=== PATIENT | female | born 2000 | race African-American/Black ===

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

== ENCOUNTER 2019-03-15 23:41 | Emergency (ER) | payer MEDICAID ==
[2019-03-15 23:47] VITALS: BP 127/70
--- NOTE | 2019-03-16 00:01 | EDM.PDOC ---
ED HPI GENERAL MEDICAL PROBLEM - General Chief Complaint: Lower Extremity Injury/Pain Stated Complaint: left ankle pain Time Seen by Provider: 03/15/19 23:50 Source of Information: Reports: Patient History Limitations: Reports: No Limitations - History of Present Illness INITIAL COMMENTS - FREE TEXT/NARRATIVE: Patient states today approximately at 5 PM states while dancing around she turned her left ankle inward she states she was able to walk afterwards but has been walking with a little bit of limp the rest of the day she says the pain is actually gone down through the night rates her pain now is about a 6 out of 10 she says she can walk is just little sore she denies increase in swelling or increasing pain no numbness, tingling states that the only remedy she has tried was a hot bath no [id number] NSAIDs or ice she denies any other complaints at this time Onset: Today Duration: Hour(s): Quality: Reports: Throbbing Left Ankle Pain Score (Numeric/FACES): 6 - Related Data Allergies Allergy/AdvReac Type Severity Reaction Status Date / Time No Known Allergies Allergy Verified 03/15/19 23:42 Home Meds: Home Meds FLUoxetine HCl [Fluoxetine HCl] 1 tab PO DAILY 03/15/19 [History] busPIRone HCl [Buspirone HCl] 1 tab PO DAILY 03/15/19 [History] Past Medical History - Past Health History Medical/Surgical History: Denies Medical/Surgical History Psychiatric History: Reports: Anxiety, Depression, PTSD, Other (See Below) Other Psychiatric History: cutter Social & Family History - Tobacco Use Smoking Status *Q: Never Smoker Review of Systems - Review of Systems Review Of Systems: See Below Constitutional: Reports: No Symptoms Musculoskeletal: Reports: Joint Swelling. Denies: Leg Pain, Foot Pain, Joint Pain Skin: Reports: No Symptoms Neurological: Reports: No Symptoms. Denies: Numbness, Tingling ED EXAM, GENERAL - Physical Exam Exam: See Below Exam Limited By: No Limitations General Appearance: Alert, WD/WN, No Apparent Distress (Patient is actively playing on phone no acute distress) Extremities: Normal Inspection, Normal Range of Motion, No Pedal Edema, Normal Capillary Refill (Exams left foot and left ankle neurovascularly intact normal dorsalis pedis posterior tibialis normal soft touch sensation with cap Refill no tenderness to palpation on the medial or lateral malleolus or over the navicular tenderness to palpation over the proximal tibia fibula area she has full range of motion with the ankle with eversion and inversion she has no tenderness to palpation over the fifth metatarsal mild edema is noted over the lateral malleolus area), Other. No: Non-Tender, Joint Swelling Neurological: Alert, CN II-XII Intact, Normal Cognition, Normal Gait, No Motor/ Sensory Deficits Skin Exam: Warm, Intact, Normal Color, No Rash Course - Vital Signs Last Recorded V/S: Last Vital Signs Temp 35.6 C 03/15/19 23:44 Pulse 87 03/15/19 23:44 Resp 16 03/15/19 23:44 BP 127/70 03/15/19 23:44 Pulse Ox 96 03/15/19 23:44 - Re-Assessments/Exams Free Text/Narrative Re-Assessment/Exam: 03/16/19 00:01 kaw ankle rules were applied for the patient Bone tenderness at the posterior edge or tip of the lateral malleolus Bone tenderness at the posterior edge or tip of the medial malleolus OR. An inability to bear weight both immediately and in the emergency department for four steps. Bone tenderness at the posterior edge or tip of the lateral malleolus (A) Bone tenderness at the posterior edge or tip of the medial malleolus (B) OR. An inability to bear weight both immediately and in the emergency department for four steps. Departure - Departure Time of Disposition: 00:05 Disposition: Home, Self-Care 01 Condition: Good Clinical Impression: Left ankle sprain - Discharge Information Instructions: Ankle Sprain - Problem List & Annotations (1) Left ankle sprain SNOMED Code(s): 42238045, [id number] Code(s): S93.402A - SPRAIN OF UNSPECIFIED LIGAMENT OF LEFT ANKLE, INIT ENCNTR Status: Acute (2) Left ankle sprain SNOMED Code(s): 96950147, [id number] Code(s): S93.402A - SPRAIN OF UNSPECIFIED LIGAMENT OF LEFT ANKLE, INIT ENCNTR Status: Acute - Assessment/Plan Plan: Patient was applied by myself to left ankle patient was rechecked neurovascularly intact patient states she is okay with treatment conservatively and will follow up PCP or return to the ER if anything changes Tylenol 500 mg by mouth every 4-6 hours Motrin/ibuprofen 800 mg by mouth every 8 hours take both medications with food and apply ice to the area 1 hour on 1 hour off for the next 12-24 hours and elevate the ankle as much as possible remove the Yves wrap if any numbness tingling or discoloration coldness to the foot return to the emergency room if any of the above problems start or anything changes follow up with primary care provider the next 24 hours and have the ankle x-rayed if pain increases or cannot walk or have increased pain with walking
== END 2019-03-16 00:15 | disposition home or self-care (01) ==
LOC: VM.ED 23:41
DX: S93.402A Sprain of unspecified ligament of left ankle, initial encounter (principal); F41.9 Anxiety disorder, unspecified; F32.9 Major depressive disorder, single episode, unspecified; Z79.899 Other long term (current) drug therapy; X50.9XXA Other and unspecified overexertion or strenuous movements or postures, initial encounter; Y93.41 Activity, dancing
CPT/HCPCS: 99282

== ENCOUNTER 2020-10-18 09:12 | Emergency (ER) | payer MEDICAID ==
[2020-10-18 09:21] VITALS: BP 121/72; PULSE 109
[2020-10-18 09:43] LABS: BARBITURATE SCREEN,URINE NEGATIVE (NEGATIVE); BENZODIAZEPINES SCREEN,URINE NEGATIVE (NEGATIVE); EDDP,URINE SCREEN NEGATIVE (NEGATIVE); METHAMPHETAMINE SCREEN, URINE NEGATIVE (NEGATIVE); TCA SCREEN,URINE NEGATIVE (NEGATIVE); THC SCREEN,URINE 50 NG/ML NEGATIVE (NEGATIVE)
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
[2020-10-18 10:32] LABS: CHLORIDE,CL 104 mmol/L (98-107); SODIUM,NA 139 mmol/L (136-145)
[2020-10-18 10:33] LABS: ACETAMINOPHEN 0 ug/ml (10-30); ANION GAP 12.4 mmol/L (10-20)
[2020-10-18] MEDS: Take Home: Sulfamethoxazole/Trimethoprim 800-160 MG Tab, 2 Tab Pack PO ONE (14:02)
[2020-10-18] MEDS ORDERED: Piperacillin/Tazobactam 4.5 GM in Sodium Chloride 0.9% 100 ML IV ONE (14:40)
== END 2020-10-18 13:08 ==
LOC: VM.ED 09:12
DX: F32.9 Major depressive disorder, single episode, unspecified (principal); F10.10 Alcohol abuse, uncomplicated; Y90.6 Blood alcohol level of 120-199 mg/100 ml; N39.0 Urinary tract infection, site not specified; F41.9 Anxiety disorder, unspecified; Z79.899 Other long term (current) drug therapy; Z20.828 Contact with and (suspected) exposure to other viral communicable diseases
CPT/HCPCS: 36415; 80053; 80305-QW; 80307; 81001; 81025; 83735; 84443; 85025; 85610; 85730; 87086; 99284; 99285-25; A9270-GY; U0002

== ENCOUNTER 2021-02-16 01:43 | Emergency (ER) | payer MEDICAID ==
--- NOTE | 2021-02-16 01:55 | EDM.PDOC ---
ED HPI GENERAL MEDICAL PROBLEM - General Stated Complaint: arm pain and numbness Time Seen by Provider: 02/16/21 01:54 Source of Information: Reports: Patient History Limitations: Reports: No Limitations - History of Present Illness INITIAL COMMENTS - FREE TEXT/NARRATIVE: Patient comes emergency department today with complaints of an acute onset of left lateral neck pain. This patient about a half an hour ago woke up for the first time today at 1:30 in the morning and started the stretching suddenly felt some popping and severe pain in the left lateral aspect of the posterior neck that radiated down the cephalad aspect of the shoulder. She has had no recent falls trauma or injury to her neck. She has no history of neck problems neck pain or neck surgery. She complains of pain that starts at the left posterior base of her neck radiates along the aspect of the shoulder and down about long term of the left humerus. She does complain of some paresthesia but no change in function. No back pain. She has not tried anything for pain prior to arrival. NO COVID exposure no COVID symptoms. Neck Pain Score (Numeric/FACES): 3 - Related Data Allergies Allergy/AdvReac Type Severity Reaction Status Date / Time No Known Allergies Allergy Verified 10/18/20 09:51 Home Meds: Home Meds FLUoxetine HCl [Fluoxetine HCl] 1 tab PO DAILY 03/15/19 [History] busPIRone HCl [Buspirone HCl] 1 tab PO DAILY 03/15/19 [History] Cyclobenzaprine [Flexeril] 10 mg PO TID PRN #12 tab 02/16/21 [Rx] Past Medical History - Past Health History Medical/Surgical History: Denies Medical/Surgical History Psychiatric History: Reports: Anxiety, Depression, PTSD, Other (See Below) Other Psychiatric History: self harm ED ROS GENERAL - Review of Systems Review Of Systems: Comprehensive ROS is negative, except as noted in HPI. ED EXAM, GENERAL - Physical Exam Exam: See Below Exam Limited By: No Limitations General Appearance: Alert, WD/WN, No Apparent Distress Eye Exam: Bilateral Eye: EOMI, PERRL Ears: Normal External Exam, Normal TMs Ear Exam: Bilateral Ear: TM normal Nose: Normal Inspection, Normal Mucosa Throat/Mouth: Normal Inspection, Normal Lips, Normal Oropharynx Head: Atraumatic, Normocephalic Neck: Normal Inspection, Supple, Tender Lateral (Left lateral posterior tenderness. POsitive spurlings to the left negative to the right. ), Tender Midline Respiratory/Chest: No Respiratory Distress Cardiovascular: Normal Peripheral Pulses, Regular Rate, Rhythm Peripheral Pulses: 2+: Brachial (L), Brachial (R), Radial (L), Radial (R) Back Exam: Normal Inspection Extremities: Normal Inspection (STOVALL strong equal to command. Able to abduct and adduct approriately of the shoulder. She can reach behind her back approriately with her arm. ) Neurological: Alert, Oriented Psychiatric: Normal Affect, Normal Mood Skin Exam: Warm, Dry, Intact, Normal Color Course - Vital Signs Last Recorded V/S: Last Vital Signs Temp 98.7 F 02/16/21 01:43 Pulse 88 02/16/21 01:43 Resp 16 02/16/21 01:43 BP 154/104 H 02/16/21 01:43 Pulse Ox 98 02/16/21 01:43 - Orders/Labs/Meds Meds: Medications Discontinued Medications Generic Name Dose Route Start Last Admin Trade Name Anthony PRN Reason Stop Dose Admin Ketorolac Tromethamine 30 mg 02/16/21 02:02 02/16/21 02:14 Ketorolac 30 Mg/Ml Sdv IM 02/16/21 02:03 30 mg ONETIME ONE Administration Orphenadrine Citrate 60 mg 02/16/21 02:02 02/16/21 02:14 Orphenadrine 60 Mg/2 Ml Inj IM 02/16/21 02:03 60 mg NOW STA Administration - Re-Assessments/Exams Free Text/Narrative Re-Assessment/Exam: 02/16/21 02:07 Ketorolac 30mg IM Norflex 60mg IM. The patient chose not to wait around to see if her symptoms had improved. Which is fine I just want to ensure that the patient has improvement of her symptoms prior to discharging with the plan that I had detailed but she feels that it is too late in the night she would like to go home and go to bed. Discharge directions as below are explained to the patient she was comfortable with this plan and her questions were answered. Departure - Departure Time of Disposition: 02:20 Disposition: Home, Self-Care 01 Clinical Impression: Cervical radiculopathy - Discharge Information *PRESCRIPTION DRUG MONITORING PROGRAM REVIEWED*: Not Applicable *COPY OF PRESCRIPTION DRUG MONITORING REPORT IN PATIENT SAQIB: Not Applicable Prescriptions: Cyclobenzaprine [Flexeril] 10 mg PO TID PRN #12 tab PRN Reason: Pain Instructions: Cervical Radiculopathy, [id number] Additional Instructions: Tylenol and or Ibuprofen as needed for pain. Ice or heat to the affected area which ever works best for you. Contact physical therapy tomorrow for self referral to PT for cervical radiculopathy. [phone]. For muscle spasms and pain. If not controlled with above. Flexeril, 1 tablet three times a day as needed for pain muscle spasms. Rx to [facility]. Return to the ED if new or worsening symptoms. Follow up with PCP in 1 week if not improving sooner if worse.
[2021-02-16] MEDS ORDERED: Orphenadrine 60 MG/2 ML Inj IM STA (02:02)
[2021-02-16] MEDS ORDERED: Ketorolac 30 MG/ML SDV IM ONE (02:02)
[2021-02-16 02:35] VITALS: BP 154/104; PULSE 88
== END 2021-02-16 02:25 | disposition home or self-care (01) ==
LOC: VM.ED 01:43
DX: M54.12 Radiculopathy, cervical region (principal); Z79.899 Other long term (current) drug therapy
CPT/HCPCS: 96372; 99283; J1885; J2360

== ENCOUNTER 2023-10-12 15:14 | Emergency (ER) | payer MEDICAID ==
[2023-10-12 16:04] VITALS: BP 141/85; PULSE 94
[2023-10-12 16:26] LABS: STREP A BY PCR NOT DETECTED (NOT DETECT)
[2023-10-12 16:39] LABS: CORONAVIRUS COVID-19 NAA POSITIVE (NEGATIVE); INFLUENZA A NAA NEGATIVE (NEGATIVE); INFLUENZA B NAA NEGATIVE (NEGATIVE); RESPIRATORY SYNCYTIAL VIR NAA NEGATIVE (NEGATIVE)
== END 2023-10-12 16:51 | disposition home or self-care (01) ==
LOC: VM.ED 15:14
DX: U07.1 COVID-19 (principal); F17.200 Nicotine dependence, unspecified, uncomplicated; Z79.899 Other long term (current) drug therapy
CPT/HCPCS: 0241U; 87651-QW; 99283